=== PATIENT | male | born 1950 | race Caucasian/White ===

== ENCOUNTER 2018-12-30 11:52 | Emergency (ER) | payer OTHER, BC ==
[~2018-12-30] VITALS: Ht 165.1 cm; Wt 82.6 kg
[2018-12-30] MEDS ORDERED: LIPITOR 20 MG T20 M1 PO (11:59)
[2018-12-30] MEDS ORDERED: ST. JOSEPH ASPI81 MG PO (11:59)
[2018-12-30] MEDS ORDERED: CENTRUM SILVER1 EAC2 PO (12:00)
[2018-12-30] MEDS ORDERED: NEOMYC-POLYM-DEX5 ML OPHTHALMIC (12:40)
[2018-12-30 13:22] VITALS: BP 134/69
== END 2018-12-30 13:01 | disposition home or self-care (01) ==
LOC: ER 11:52
DX: T15.01XA Foreign body in cornea, right eye, initial encounter (principal); E78.00 Pure hypercholesterolemia, unspecified; N40.0 Benign prostatic hyperplasia without lower urinary tract symptoms; F17.210 Nicotine dependence, cigarettes, uncomplicated; Z88.0 Allergy status to penicillin; X58.XXXA Exposure to other specified factors, initial encounter; Y93.89 Activity, other specified; Y92.89 Other specified places as the place of occurrence of the external cause; Y99.8 Other external cause status